=== PATIENT | male | born 1985 | race Caucasian/White ===

== ENCOUNTER 2017-11-01 23:48 | Emergency (ER) | payer SELFPAY ==
[~2017-11-01] VITALS: Ht 180.3 cm; Wt 78.0 kg
[2017-11-01 23:53] VITALS: BP 130/80; PULSE 80; RESP 20; TEMP 98.9; O2SAT 98
[2017-11-01 23:55] VITALS: BP 133/80; PULSE 87; RESP 20; TEMP 99.6; O2SAT 98
--- NOTE | 2017-11-02 00:21 | PD ---
HPI Chief Complaint: Headache Time Seen by Provider: 00:03 Travel History International Travel<30 days: No Contact w/Intl Traveler<30days: No Traveled to known affect area: No History of Present Illness HPI The patient is a 32 year old male who presents to the [facility] emergency department with a history of a headache that began at 5 pm today. The pain is from his upper teeth to the top of his head. He reports that the headache is a pressure sensation. He has had nasal drainage that is clear in color. He had a nose bleed earlier today. He reports that he has had a sore throat, cough, chest congestion, and body aches. He reports that his cough is productive of clear sputum. He reports having a subjective fever. He denies having any vomiting or diarrhea. His head congestion began 2 days ago. Otherwise on review of systems, he denies having any neck pain or stiffness, chest pain, shortness of breath, abdominal pain, vomiting, diarrhea, urinary symptoms, or other neurologic symptoms. The patient reports that he did not receive his influenza vaccination this season. The patient reports that he has had worse headaches compared to this 1. He reports that it gradually began and is worsened with time in spite of taking Excedrin. FOR[facility]LY [facility], LATER [facility] Past Medical History Narrative Medical The patient's past medical history is significant for headaches dx 2 years ago. Diminished Hearing: No Headaches: Yes Immunizations Current: Yes Migraines: Yes Tetanus Vaccination: Unknown Influenza Vaccination: No Past Surgical History Surgical History: No Previous Surgery Social History Alcohol Use: Yes (occasionally) Tobacco Use: Yes (08/19 ppd) Substance Use: No Allergies-Medications (Allergen,Severity, Reaction): Coded Allergies: No Known Allergies (Unverified , 11/01/17) Reported Meds & Prescriptions Reported Meds & Active Scripts Active Augmentin (Amoxicillin-Clavulanate) 875-125 Mg Tab 1 Tab PO BID Narrative Medication Excedrin migraine PRN Review of Systems Except as stated in HPI: all other systems reviewed are Neg General / Constitutional: Positive: Fever Eyes: No: Visual changes HENT: Positive: Headaches, Sore Throat, Rhinorrhea, Congestion, No: Neck Stiffness, Neck Pain Cardiovascular: No: Chest Pain or Discomfort Respiratory: Positive: Cough, No: Shortness of Breath Gastrointestinal: No: Abdominal Pain Genitourinary: No: Dysuria Musculoskeletal: No: Pain Skin: No Rash Neurologic: Positive: Headache, No: Weakness, Focal Abnormalities, Change in Mentation, Slurred Speech, Sensory Disturbance Psychiatric: No: Depression Endocrine: No: Polydipsia Hematologic/Lymphatic: No: Easy Bruising Physical Exam Narrative General: The patient is a well-developed well-nourished male in no acute distress. Head and Neck exam: Head is normocephalic atraumatic. Sinuses: Sinuses are tender to palpation over bilateral frontal and maxillary sinuses. Eyes: EOMI, pupils are equal round and reactive to light. Nose: Midline septum with erythematous edematous nasal mucosa worse in the left naris compared to the right with a clear nasal discharge. Mouth: Dentition unremarkable. Moist mucus membranes. Posterior oropharynx is not erythematous. No tonsillar hypertrophy. Uvula midline. Airway patent. Neck: No palpable lymphadenopathy. No nuchal rigidity. No thyromegaly. Negative Brudzinski, negative Kernig sign peer Cardiovascular: Regular rate and rhythm without murmurs, gallops, or rubs. Lungs: Clear to auscultation bilaterally. No wheezes, rhonchi, or rales. Abdomen: Soft, without tenderness to palpation in all 4 quadrants of the abdomen. No guarding, rebound, or rigidity. Normal bowel sounds are audible. No tenderness on palpation of McBurney's point. Negative Brooks sign. Extremities: No clubbing, cyanosis, or edema. 2+ pulses in all 4 extremities. No calf tenderness on palpation. Back: No spinous process tenderness to palpation. No costovertebral angle tenderness to palpation. Neurologic Exam: Cranial nerves 2-12 were intact on exam. Strength is 5/5 in all 4 extremities. No sensory deficits noted. Skin Exam: No rash noted. Intact skin that is warm and dry. Data Data Last Documented VS Vital Signs Date Time Temp Pulse Resp B/P (MAP) Pulse Ox O2 Delivery O2 Flow Rate FiO2 11/02/17 03:38 11/02/17 02:34 98.0 82 20 98 Room Air Orders Orders Complete Blood Count With Diff (11/02/17 00:38) Basic Metabolic Panel (Bmp) (11/02/17 00:38) Influenzae A/B Antigen (11/02/17 00:38) Chest, Single Ap (11/02/17 00:38) Ct Brain W/O Iv Contrast(Rout) (11/02/17 00:38) Iv Access Insert/Monitor (11/02/17 00:38) Ecg Monitoring (11/02/17 00:38) Oximetry (11/02/17 00:38) Sodium Chlor 0.9% 1000 Ml Inj (Ns 1000 M (11/02/17 00:45) Urinalysis - C+S If Indicated (11/02/17 00:43) Ketorolac Inj (Toradol Inj) (11/02/17 00:45) Ceftriaxone Inj (Rocephin Inj) (11/02/17 03:00) Labs Laboratory Tests Test 11/02/17 00:47 White Blood Count 9.1 TH/MM3 Red Blood Count 5.22 MIL/MM3 Hemoglobin 15.9 GM/DL Hematocrit 45.8 % Mean Corpuscular Volume 87.7 FL Mean Corpuscular Hemoglobin 30.4 PG Mean Corpuscular Hemoglobin Concent 34.7 % Red Cell Distribution Width 14.1 % Platelet Count 240 TH/MM3 Mean Platelet Volume 6.7 FL Neutrophils (%) (Auto) 72.7 % Lymphocytes (%) (Auto) 12.5 % Monocytes (%) (Auto) 12.8 % Eosinophils (%) (Auto) 1.2 % Basophils (%) (Auto) 0.8 % Neutrophils # (Auto) 6.6 TH/MM3 Lymphocytes # (Auto) 1.1 TH/MM3 Monocytes # (Auto) 1.2 TH/MM3 Eosinophils # (Auto) 0.1 TH/MM3 Basophils # (Auto) 0.1 TH/MM3 CBC Comment DIFF FINAL Differential Comment Urine Color LIGHT-YELLOW Urine Turbidity CLEAR Urine pH 6.5 Urine Specific [place] 1.012 Urine Protein NEG mg/dL Urine Glucose (UA) NEG mg/dL Urine Ketones NEG mg/dL Urine Occult Blood NEG Urine Nitrite NEG Urine Bilirubin NEG Urine Urobilinogen LESS THAN 2.0 MG/DL Urine Leukocyte Esterase NEG Urine RBC 1 /hpf Microscopic Urinalysis Comment CULT NOT INDICATED Blood Urea Nitrogen 13 MG/DL Creatinine 1.38 MG/DL Random Glucose 103 MG/DL Calcium Level 8.8 MG/DL Sodium Level 136 MEQ/L Potassium Level 4.0 MEQ/L Chloride Level 101 MEQ/L Carbon Dioxide Level 26.7 MEQ/L Anion Gap 8 MEQ/L Estimat Glomerular Filtration Rate 59 ML/MIN [facility] Medical Decision Making Medical Screen Exam Complete: Yes Emergency Medical Condition: Yes Medical Record Reviewed: Yes Interpretation(s) Last Impressions Head CT 11/02/1737 Signed Impressions: Service Date/Time: Thursday, November 02, 2017 01:41 - CONCLUSION: 1. No acute findings in the brain. 2. Small bilateral maxillary sinus air-fluid level suggests acute sinusitis. Amos Mathews MD Chest X-Ray 11/02/1737 Signed Impressions: Service Date/Time: Thursday, November 02, 2017 01:01 - CONCLUSION: The lungs are clear. Amos Mathews MD Differential Diagnosis Acute sinusitis, versus influenza, versus pneumonia, versus viral syndrome, versus intracranial mass, versus meningitis Narrative Course During the course of the patient's emergency department visit, the patient's history, examination, and differential diagnosis were reviewed with the patient. The patient was placed on a compliance monitor with oximetry and frequent blood pressure monitoring. The patient had IV access obtained and blood work sent for analysis. The patient was initially provided normal saline 1 L IV fluid bolus, Toradol 15 mg IV for pain. The patient's studies were reviewed and remarkable for a white count of 9.1, hemoglobin 15.9, platelets 240 with 72.7 neutrophils, monocytes 12.8. Basic metabolic profile is remarkable for creatinine 1.38, urinalysis within normal limits. A chest x-ray shows no acute cardiopulmonary disease. CT scan of the brain shows no acute findings in the brain, small bilateral maxillary sinus air- fluid levels suggestive of acute sinusitis. The patient was given Rocephin 1 g IV. The patient will be discharged home with a prescription for Augmentin. The patient is resting comfortably and feels better, is alert and in no distress. The patient's results and examination findings were discussed with the patient. The repeat examination is unremarkable and benign. The history, exam, diagnostic testing, and current condition do not suggest any significant pathology to warrant further testing, continued ED treatment, admission, or surgical evaluation at this point. The vital signs have been stable. The patient does not have uncontrollable pain, intractable vomiting, or other significant symptoms. The patient's condition is stable and appropriate for discharge. The patient will pursue further outpatient evaluation with a primary care physician or other designated or consulting physician as indicated in the discharge instructions. The patient expressed understanding and was agreeable with this plan. Diagnosis Primary Impression: Sinusitis, acute maxillary Qualified Codes: J01.00 - Acute maxillary sinusitis, unspecified Referrals: Primary Care Physician 3 days Patient Instructions: General Instructions, Sinusitis (ED) Med/Other Pt SpecificInfo: Prescription(s) given Scripts Amoxicillin-Clavulanate (Augmentin) 875-125 Mg Tab 1 TAB PO BID for Infection, #14 TAB 0 Refills Prov: Makeda Murcia MD 11/02/17 Disposition: 01 DISCHARGE HOME Condition: Stable Makeda Murcia MD Nov 02, 2017 00:21
[2017-11-02] MEDS ORDERED: KETOROLAC TROMETHAMINE 30 MG/ML (IVP) VIAL IV PUSH ONE (00:45)
[2017-11-02] MEDS ORDERED: SODIUM CHLOR 0.9% 1000 ML INJ 1,000 ML IV ONE (00:45)
[2017-11-02 00:51] VITALS: RESP 20
[2017-11-02 01:08] LABS: AUTOMATED NEUTROPHIL # 6.6 TH/MM3 (1.8-7.7); BASOPHIL # 0.1 TH/MM3 (0-0.2); BASOPHIL % 0.8 % (0.0-2.0); EOSINOPHIL # 0.1 TH/MM3 (0-0.4); EOSINOPHIL % 1.2 % (0.0-4.0); HEMATOCRIT 45.8 % (39.0-51.0); HEMOGLOBIN 15.9 GM/DL (13.0-17.0); LYMPH % 12.5 % (9.0-44.0); LYMPHOCYTE # 1.1 TH/MM3 (1.0-4.8); MEAN CELL VOLUME 87.7 FL (80.0-100.0); MEAN CORPUSCULAR HEMOGLOBIN 30.4 PG (27.0-34.0); MEAN CORPUSCULAR HGB CONC 34.7 % (32.0-36.0); MEAN PLATELET VOLUME 6.7 FL (7.0-11.0); MONO % 12.8 % (0.0-8.0); MONOCYTE # 1.2 TH/MM3 (0-0.9); NEUT % 72.7 % (16.0-70.0); PLATELET COUNT 240 TH/MM3 (150-450); RED BLOOD COUNT 5.22 MIL/MM3 (4.50-5.90); RED CELL DISTRIBUTION WIDTH 14.1 % (11.6-17.2); WHITE BLOOD COUNT 9.1 TH/MM3 (4.0-11.0)
[2017-11-02 01:17] LABS: BILIRUBIN, URINE NEG (NEG); BLOOD, URINE NEG (NEG); GLUCOSE,URINE NEG (NEG); KETONE, URINE NEG (NEG); NITRITE,URINE NEG (NEG); PH, URINE 6.5 (5.0-8.5); URINE COLOR LIGHT-YELLOW (YELLW/STRAW); URINE LEUKOCYTE ESTERASE NEG (NEG)
[2017-11-02 01:33] LABS: BICARBONATE 26.7 MEQ/L (21.0-32.0); CALCIUM 8.8 MG/DL (8.5-10.1); CREATININE 1.38 MG/DL (0.60-1.30)
--- NOTE | 2017-11-02 01:35 | RADRPT ---
EXAM DATE/TIME: 11/02/2017 01:01 [facility] COMPARISON: No previous studies available for comparison. INDICATIONS : Shortness of breath. MEDICAL HISTORY : None. SURGICAL HISTORY : None. ENCOUNTER: Initial ACUITY: 1 day PAIN SCORE: 0/10 LOCATION: Bilateral chest FINDINGS: A single view of the chest demonstrates the lungs to be symmetrically aerated without evidence of mas s, infiltrate or effusion. The cardiomediastinal contours are unremarkable. Osseous structures are intact. CONCLUSION: The lungs are clear. Amos Mathews MD on November 02, 2017 at 1:34 Board Certified Radiologist. This report was verified electronically.
[2017-11-02 02:34] VITALS: BP 111/68; PULSE 82; RESP 20; TEMP 98; O2SAT 98
--- NOTE | 2017-11-02 02:51 | RADRPT ---
EXAM DATE/TIME: 11/02/2017 01:41 [facility] COMPARISON: No previous studies available for comparison. INDICATIONS : Headaches. RADIATION DOSE: 34.59 CTDIvol (mGy) MEDICAL HISTORY : None SURGICAL HISTORY : None. ENCOUNTER: Initial ACUITY: 1 day PAIN SCALE: 10/10 LOCATION: cranial TECHNIQUE: Multiple contiguous axial images were obtained of the head. Using automated exposure control and adj ustment of the mA and/or kV according to patient size, radiation dose was kept as low as reasonably a chievable to obtain optimal diagnostic quality images. DICOM format image data is available electro nically for review and comparison. FINDINGS: CEREBRUM: The ventricles are normal for age. No evidence of midline shift, mass lesion, hemorrhage or acute in farction. No extra-axial fluid collections are seen. POSTERIOR FOSSA: The cerebellum and brainstem are intact. The 4th ventricle is midline. The cerebellopontine angle i s unremarkable. EXTRACRANIAL: The visualized portion of the orbits is intact. Small bilateral air-fluid levels in the maxillary si nuses. Mucosal thickening in several anterior and mid ethmoid air cell. SKULL: The calvaria is intact. No evidence of skull fracture. CONCLUSION: 1. No acute findings in the brain. 2. Small bilateral maxillary sinus air-fluid level suggests acute sinusitis. Amos Mathews MD on November 02, 2017 at 2:49 Board Certified Radiologist. This report was verified electronically.
[2017-11-02] MEDS ORDERED: cefTRIAXone INJ 1,000 MG in SODIUM CHLORIDE 0.9% INJ 100 ML IV ONE (03:00)
[2017-11-02] MEDS ORDERED: AUGM875T3 PO (03:24)
== END 2017-11-02 03:50 | disposition home or self-care (01) ==
LOC: NEPE 23:48
DX: J01.00 Acute maxillary sinusitis, unspecified (principal); F17.200 Nicotine dependence, unspecified, uncomplicated
CPT/HCPCS: 70450; 71045; 80048; 81001; 85025; 87804; 96361; 96365; 96375; 99285; J0696; J1885; J7030